=== PATIENT | female | born 1950 | race Caucasian/White ===

== ENCOUNTER → 2018-01-17 | Outpatient (CLI) | payer MEDICARE, OTHER ==
[~2018-01-17] MED LIST: ASPI-715 PO; ERGO400T9 PO; HYDR-3250 PO; LEVO75TA68 PO; LISI-355 PO; LORA-802 PO; MULT-885 PO
--- NOTE | 2018-01-17 14:58 | RADIOLOGY IMAGING REPORT ---
FACILITY: [facility] [place] PATIENT NAME: IRIS CULLEN : [id number] MR: [id number] V: [id number] EXAM DATE: [id number] ORDERING PHYSICIAN: AVI LOCKE TECHNOLOGIST: Shae Mclean PROCEDURE:BILATERAL DIGITAL SCREENING MAMMOGRAM WITH CAD ASSISTED INTERPRETATION & 3D TOMOSYNTHESIS COMPARISON:Prior mammogram 01/16/17. INDICATIONS:SCREENING FINDINGS: Breast tissue demonstrates scattered fibroglandular tissue elements. There is a biopsy clip in the Right breast unchanged. There is no suspicious mass, calcification, or architectural distortion. DIAGNOSTIC CATEGORY 2--BENIGN FINDING. RECOMMENDATIONS: ROUTINE MAMMOGRAM AND CLINICAL EVALUATION. IMPRESSION: BIRADS 2: Benign finding. No mammographic evidence for malignancy. Dictated by: Jorge Lin M.D. on 01/17/2018 at 12:12 Transcribed by: JENAE on 01/17/2018 at 13:36 Approved by: Jorge Lin M.D. on 01/17/2018 at 14:57 [facility]
== END ==
LOC: MAMO 02:16
PROVIDERS: ATTEND Nurse Practitioner Psychiatric/Mental Health
DX: Z12.31 Encounter for screening mammogram for malignant neoplasm of breast (principal)
CPT/HCPCS: 77063; 77067

== ENCOUNTER → 2018-11-27 | Outpatient (CLI) | payer MEDICARE, OTHER ==
--- NOTE | 2018-11-27 12:37 | EKG ---
FACILITY: [facility] PATIENT NAME: IRIS CULLEN : [id number] MR: [id number] V: [id number] EXAM DATE: ORDERING PHYSICIAN: JHONY HERNADEZ TECHNOLOGIST: ITZEL Test Reason : PREOP-KNEE Blood Pressure : / mmHG Vent. Rate : 077 BPM Atrial Rate : 077 BPM P-R Int : 176 ms QRS Dur : 068 ms QT Int : 388 ms P-R-T Axes : 068 027 059 degrees QTc Int : 439 ms Normal sinus rhythm Normal ECG When compared with ECG of 21-JUL-2016 09:36, Relatively unchanged Confirmed by ALBERTO KENNEDY ([id number]) on 11/27/2018 3:03:26 PM Referred By: Brooke HERNADEZ Confirmed By:ALBERTO KENNEDY
== END ==
LOC: RESP 11:40
PROVIDERS: ATTEND Orthopaedic Surgery
DX: Z01.810 Encounter for preprocedural cardiovascular examination (principal); Z01.812 Encounter for preprocedural laboratory examination; M17.12 Unilateral primary osteoarthritis, left knee; I10 Essential (primary) hypertension; E03.9 Hypothyroidism, unspecified
CPT/HCPCS: 81001; 93005

== ENCOUNTER 2018-12-31 01:36 | Observation (INO) | payer MEDICARE, OTHER ==
[2018-12-30 13:37] LABS: INR 1.04
--- NOTE | 2018-12-30 15:26 | NUR ---
This Physical Therapist or Russet Repairer was present for the entire physical therapy session directing the services, making the skilled judgement, and was not engaged in treating another patient or doing another task at the same time as the treatment session. Addendum: 12/30/18 at 1526 by IGOR PARKER PT Amended: Links added.
[~2018-12-31] VITALS: Ht 172.7 cm; Wt 83.5 kg
[2018-12-31] VITALS (12 sets, daily range): BP systolic 101–128; BP diastolic 48–82
[2018-12-31] MEDS ORDERED: fentaNYL CITR 100 MCG/2 ML AMP ONE (08:58)
[2018-12-31] MEDS ORDERED: ONDANSETRON 4 MG/2 ML VIAL ONE (08:59)
[2018-12-31] MEDS ORDERED: PROPOFOL EMUL(*) 10MG/ML 20 ML 20 ML ONE (08:59)
[2018-12-31] MEDS ORDERED: LIDOCAINE MPF 1% 5 ML VIAL ONE (08:59)
[2018-12-31] MEDS ORDERED: DEXAMETHASONE SOD PHOS 10MG/ML ONE (08:59)
[2018-12-31] MEDS ORDERED: SCOPOLAMINE 1.5 MG PATCH TD ONE (10:10)
--- NOTE | 2018-12-31 10:15 | NUR ---
PT. REPORTS THAT SHE HAS TAKEN CELEBREX IN THE PAST WITHOUT ANY ISSUES OR REACTIONS. WILL GIVE.
[2018-12-31] MEDS ORDERED: PROPOFOL(*)1000 MG/100 ML VIAL 100 ML ONE (10:16)
[2018-12-31] MEDS ORDERED: ceFAZolin(*) 2GM/D5W 50ML 50 ML IVPB ONE (10:45)
[2018-12-31] MEDS ORDERED: TRANEXAMIC AC 1000 MG/10ML SDV 1,000 MG in DEXTROSE 5% 50 ML BAG 50 ML IV ONE (10:45)
[2018-12-31] MEDS ORDERED: MIDAZOLAM 2 MG/2 ML VIAL IVP PRN (10:45)
[2018-12-31] MEDS ORDERED: NORMOSOL R SOLN(*) 1000 ML BAG 1,000 ML IV PRN (10:45)
[2018-12-31] MEDS ORDERED: CELECOXIB 200 MG CAP PO ONE (10:45)
[2018-12-31] MEDS ORDERED: FAMOTIDINE 20 MG TAB PO ONE (10:45)
[2018-12-31] MEDS ORDERED: LIDOCAINE/SOD BICARB 8.4% SYR ID ONE (10:45)
[2018-12-31] MEDS ORDERED: PREGABALIN 150 MG CAPSULE PO ONE (10:45)
[2018-12-31] MEDS ORDERED: ROPIVACAINE/EPI/CLONIDINE/KET 50 ML SYRINGE INJ ONE (10:45)
[2018-12-31] MEDS ORDERED: BACITRACIN 50000 UNIT/VIAL 100,000 UNIT in NS 0.9% 3000 ML IRRIGATION BAG 3,000 ML IR ONE (10:45)
[2018-12-31] MEDS ORDERED: ACETAMINOPHEN 500 MG TAB PO ONE (10:45)
--- NOTE | 2018-12-31 13:41 | OPERATIVE REPORT 1 ---
EVENT DATE: December 31, 2018 SURGEON: Monico Monique MD ANESTHESIOLOGIST: Enrico Higginbotham MD ANESTHESIA: General plus spinal. VIDEO CONFERENCE SPECIALIST: Charlie Shin PA-C PREOPERATIVE DIAGNOSIS Left knee osteoarthritis. POSTOPERATIVE DIAGNOSIS Left knee osteoarthritis. PROCEDURE PERFORMED Left total knee arthroplasty. FINDINGS The patient had a significant amount of arthritic changes throughout her entire knee but was amenable for a total knee replacement. ESTIMATED BLOOD LOSS 200 mL. DRAINS None. COMPLICATIONS None. TOURNIQUET TIME 13 minutes, only after instrumentation. IMPLANTS USED DePuy Attune size 5 narrow femur with a 5 x 5 rotating platform poly insert, 5 rotating platform tibia and 35 anatomic patella. SPECIMENS None. INDICATIONS AND HISTORY This patient is a 68-year-old female that presented to my clinic for evaluation of left knee pain and irritation and arthritic changes going on for some time. She continued to have pain and irritation despite conservative management. We had tried injections for a while but she continued to have a bunch of issues so she wanted to go ahead with a total knee replacement today, December 31, 2018. The risks and benefits were discussed with the patient and inform consent was obtained at the last clinic visit. We talked about there is no guarantee it will make her better and she might end up with some stiffness or irritation associated with it. DESCRIPTION OF PROCEDURE The patient was brought into the operating room. She and the procedure were both verified. She was placed supine on the operating table. After being given a spinal, she was then induced and intubated. The left lower extremity was prepped and draped in the usual fashion and a time-out was observed, verifying the correct patient and procedure. The standard incision was made over the anterior aspect of the knee. I was careful to cauterize all the bleeders along the skin and then get down to the extensor mechanism and also the medial parapatellar approach. Once I made the medial parapatellar approach, we then cauterized a lot of bleeders along that area and also we were able to ashish the patella without any major difficulty. Once I did this, I was able to remove the patellar fat pad without any major issues in the anterior aspects of the medial and lateral menisci and then peel back a little bit of the MCL attachment on the medial side in order to gain access to the knee itself. I then high-flexed the knee with the patella everted and then I was able to take off the bony osteophytes around the ACL and then take out the ACL and significant portion of the PCL initially. This was then followed by drilling the intramedullary guide for the Attune system out of the [employer] system and then putting it on 5 and 9 and then cutting the distal femur 9 mm. I then put on the sizing block and pinned it in place to size to just under a 5 so a 5 was chosen and the four-in-one cutting block was then utilized and all four cuts were made without any major difficulty. I then put in the notch cutting block and then cut the notch without any issues and everything looked good and then we removed the rest of the PCL in this area and also the posterior aspect of the menisci as we had good access associated with this. I then turned attention to the tibia once again and I was able to then sublux the tibia anteriorly using a single-prong and a double-prong retractor. I was also able to clear off the rest of the soft tissue and also some of the posterior medial meniscus, which had extruded out to the posterior side. Once I had it all cleared off, I then drilled the intramedullary guide for the Attune system on this one also and then used the standard slot and non-slot cutting guide in order to cut just the minimal amount off the medial side. Once I did this, I cut the proximal tibia without any difficulty. It had a nice straight cut associated with it so I removed all pins and guides. This was then followed by sizing of the proximal tibia and made sure it was a size 5. Once we sized it adequately, I then pinned that in place and then used the drill and the wedge punch in order to cut the tibia and prep it for the final components. I then was able to remove some osteophytes off the posterior aspect of the femur and then trialed the components. The 5 trial seemed good. She had full extension associated with it. There were no signs of major anterior drawer testing issues associated with it and it was stable to varus and valgus exam. This then had good flexion and extension and the knee cap tracked well. I then everted the knee cap and then cut the knee cap in accordance with the Attune system, cutting 7.5 mm off of this and then sizing it to a 35 mm patella, drilling the holes, and then trialing the trial patella. Once all the trial components were in place, I then inflated the tourniquet after exsanguinating the limb. We then took that off. Irrigated with copious amounts of saline, removed the components and removed the trial components and then cemented in the final components without any major difficulty and being sure to clear off all the cement off the posterior and anterior aspects. I then let the cement harden as we let Aricept soak within the components on the wound itself. This was then followed by irrigation again with copious amounts of saline using the pulsatile lavage and then I anesthetized the tissue with the pain cocktail as I usually do. I then closed the parapatellar approach with a #2 Quill. This was then followed by 2-0 Vicryl in the lower fat layer. This was then followed by 2-0 Quill in the subcutaneous tissue and subcuticular 4-0 running Monocryl. We then put the Bio-occlusive dressing over the top and the patient was awakened and extubated and transferred to PACU in stable condition. Once again, we let the tourniquet down just after the cement was hardened. DOMINGO
[2018-12-31] MEDS ORDERED: BISACODYL 10 MG SUPP PR PRN (14:00)
[2018-12-31] MEDS ORDERED: MAGNESIUM CITRATE 300 ML BTL PO PRN (14:00)
[2018-12-31] MEDS ORDERED: ZOLPIDEM TARTRATE 5 MG TAB PO PRN (14:00)
[2018-12-31] MEDS ORDERED: ONDANSETRON 4 MG/2 ML VIAL IVP PRN (14:00)
[2018-12-31] MEDS ORDERED: diphenhydrAMINE 50 MG/ML VIAL IVP PRN (14:00)
[2018-12-31] MEDS ORDERED: MAGNESIUM HYDROXIDE* 30ML UDCP PO PRN (14:00)
[2018-12-31] MEDS ORDERED: LR 1000 ML BAG 1000 ML IV PRN (14:00)
[2018-12-31] MEDS ORDERED: FLUSH 10 ML SYR IVP PRN (14:00)
[2018-12-31] MEDS ORDERED: diphenhydrAMINE 25 MG CAP PO PRN (14:00)
[2018-12-31] MEDS ORDERED: PROMETHAZINE 25 MG/ML 1 ML AMP IVP PRN (14:00)
--- NOTE | 2018-12-31 14:15 | RADIOLOGY IMAGING REPORT ---
FACILITY: [facility] PATIENT NAME: Melody Disla : 1950 MR: [id number] V: [id number] EXAM DATE: ORDERING PHYSICIAN: JHONY HERNADEZ TECHNOLOGIST: Location: [facility] [place] Patient: Melody Disla : 1950 Visit/Account:[id number] Date of Sevice: 12/31/2018 Exam type: KNEE LIMITED LEFT History: Post op left knee placement Comparison: None. Findings: Two views left knee demonstrate a left knee arthroplasty in good anatomic alignment. Soft tissue gas projects over the anterior aspect of this postoperative knee IMPRESSION: 1. As above Report Dictated By: Jennifer Alejandre MD at 12/31/2018 2:07 PM Report E-Signed By: Jennifer Alejandre MD at 12/31/2018 2:08 PM WSN:[id number]
[2018-12-31] MEDS: oxyCODON/ACET (*)5/325MG (CII) 1 TAB TAB PO PRN ×2 (15:10→21:48)
[2018-12-31] MEDS: HYDROmorphone HCL 2 MG/ML SDV IVP PRN ×2 (15:30→20:08)
--- NOTE | 2018-12-31 16:02 | NUR ---
Physical Therapy Impression PT eval and treat completed. Spinal is still in effect and limits pt's coordination for safe ambulation. Pt tolerated side step at EOB with Min/Mod assist required for safety. Pt encouraged to use bedside commode for initial attempt when spinal is more resolved and then ambulate to/from BR with nursing when coordination improves later this evening. Physical Therapy Goals 1. Pt to be mod indep for supine to/from sit transfers 2. Pt to be mod indep for sit to/from stand transfers 3. Pt to amb with least restrictive device x 100' with mod indep 4. Pt to buster up/down 2 steps with rail and SBA/Mod indep Patient's Goals
--- NOTE | 2018-12-31 16:50 | Hospitalist Progress Note ---
Subjective Progress Notes Subjective No cp/sob. 200cc of EBL. 1800cc of crystalloid, dexamethasone, TXA and ephedrine given intra-op. Physical Exam Vital Signs Date Time Temp Pulse Resp B/P (MAP) Pulse Ox O2 Delivery O2 Flow Rate FiO2 12/31/18 15:30 92 Nasal Cannula 1.0 12/31/18 15:30 67 128/70 (89) 12/31/18 14:50 97.3 16 General Appearance: Alert, Awake, No Acute Distress Cardiovascular: Regular Rate and Rhythm (2/6 systolic murmur), No Edema Respiratory: Clear to Auscultation Assessment and Plan Problems: (1) Status post knee replacement Status: Acute Assessment & Plan: No CV/pulmonary issues. She has no h/o DVT/PE. She will be on ASA 325mg a day for 30 days for VTE prophylaxis. (2) HTN (hypertension) Status: Chronic Assessment & Plan: Continue chronic lisinopril/HCTZ with parameters. (3) Hypothyroid Status: Chronic Assessment & Plan: Continue chronic levothyroxine. Exam Sepsis Risk: No Definite Risk Problem Qualifiers (1) Status post knee replacement: Laterality: left Qualified Codes: Z96.652 - Presence of left artificial knee joint ALBERTO KENNEDY MD Dec 31, 2018 16:49
[2018-12-31] MEDS: ASPIRIN 325 MG TAB PO SCH (20:17)
[2018-12-31] MEDS: ceFAZolin(*) 1 GM VIAL 1 GM in NS(*) 0.9% 100 ML MINI-BAG 100 ML IVPB SCH (20:17)
[2019-01-01] MEDS: oxyCODON/ACET (*)5/325MG (CII) 1 TAB TAB PO PRN ×6 (01:56→21:43)
[2019-01-01] MEDS: HYDROmorphone HCL 2 MG/ML SDV IVP PRN (03:02)
[2019-01-01 03:09] VITALS: BP 128/59
[2019-01-01] MEDS: ceFAZolin(*) 1 GM VIAL 1 GM in NS(*) 0.9% 100 ML MINI-BAG 100 ML IVPB SCH ×2 (03:17→11:15)
[2019-01-01] MEDS: LEVOTHYROXINE SOD 0.075 MG TAB PO SCH (06:09)
[2019-01-01 07:52] VITALS: BP 101/53
[2019-01-01] MEDS ORDERED: HYDROCHLOROTHIAZIDE 25 MG TAB PO SCH (09:00)
[2019-01-01] MEDS ORDERED: LISINOPRIL 20 MG TAB PO SCH (09:00)
--- NOTE | 2019-01-01 10:37 | Hospitalist Progress Note ---
Subjective Progress Notes Subjective She was admitted s/p knee replacement. She had no acute events overnight. Patient Complains of: Cardiovascular: No: Chest Pain Respiratory: No: Shortness of Breath Physical Exam Vital Signs Date Time Temp Pulse Resp B/P (MAP) Pulse Ox O2 Delivery O2 Flow Rate FiO2 01/01/19 09:15 79 Room Air 01/01/19 07:57 96.8 01/01/19 07:52 60 20 101/53 (69) 12/31/18 23:47 1.0 Intake and Output 01/01/19 01:01 Intake Total 5200 ml Output Total 100 ml Balance 5100 ml Intake Oral 1250 ml IV Total 2150 ml Other 1800 ml Output Estimated Blood Loss 100 ml # Voids 1 General Appearance: Alert, Awake, No Acute Distress, Afebrile Neuro: No Gross deficits Cardiovascular: Regular Rate and Rhythm Respiratory: No Respiratory Distress, Clear to Auscultation GI: Soft and Non-Tender Psych: Alert & Oriented X3, Appropriate Mood & Affect Result Diagram: 01/01/19 0557 Assessment and Plan Problems: (1) Status post knee replacement Status: Acute Assessment & Plan: No CV/pulmonary issues. She has no h/o DVT/PE. She will be on ASA 325mg a day for 30 days for VTE prophylaxis. (2) HTN (hypertension) Status: Chronic Assessment & Plan: Continue chronic lisinopril/HCTZ with parameters. (3) Hypothyroid Status: Chronic Assessment & Plan: Continue chronic levothyroxine. Exam Sepsis Risk: No Definite Risk Problem Qualifiers (1) Status post knee replacement: Laterality: left Qualified Codes: Z96.652 - Presence of left artificial knee joint (2) HTN (hypertension): Hypertension type: essential hypertension Qualified Codes: I10 - Essential (primary) hypertension ALE DAMON IT INTEGRATION ARCHITECT Jan 01, 2019 10:37
[2019-01-01] MEDS ORDERED: KETOROLAC 30 MG/ML VIAL ONE (11:03)
[2019-01-01] MEDS: KETOROLAC 30 MG/ML VIAL IVP PRN ×2 (11:13→19:37)
[2019-01-01 11:18] VITALS: BP 134/59
[2019-01-01] MEDS ORDERED: KETOROLAC 30 MG/ML VIAL IVP SCH (12:00)
[2019-01-01 12:02] VITALS: Ht 172.7 cm; Wt 83.5 kg
--- NOTE | 2019-01-01 14:02 | NUR ---
Physical Therapy Impression Pt nearing all PT goals and safe for discharge when medically appropriate. Pt demonstrated improved tolerance to mobility and able to ascend/descend 1 stair without difficulty. Pt performed supine<>sit transfers with Mayra, HOB raised. Pt performed sit<>stand xfers with Mayra use of RW. Pt ambulated 170 ft with SBA and use of RW. Pt complained of slight light headedness, but was asymptomatic and able to hold conversation while ambulating. Pt able to ascend/descend 1 stair with CGA and use of R railing/hand held assist. Pt able to complete stair without significant difficulty. Verbal cues provided for foot sequencing. Pt left supine in bed with all needs met and call light in reach. Pt would benefit from further skilled PT care to improve strength/ROM to allow for more functional ambulation. Rec OP PT following discharge. Physical Therapy Goals 1. Pt to be mod indep for supine to/from sit transfers 2. Pt to be mod indep for sit to/from stand transfers 3. Pt to amb with least restrictive device x 100' with mod indep 4. Pt to buster up/down 2 steps with rail and SBA/Mod indep Patient's Goals
[2019-01-01 14:22] VITALS: BP 112/57
[2019-01-01 19:19] VITALS: BP 123/59
[2019-01-01] MEDS: ASPIRIN 325 MG TAB PO SCH (19:37)
[2019-01-02 01:59] VITALS: BP 114/58
[2019-01-02] MEDS: oxyCODON/ACET (*)5/325MG (CII) 1 TAB TAB PO PRN ×3 (01:59→10:31)
[2019-01-02] MEDS: LEVOTHYROXINE SOD 0.075 MG TAB PO SCH (05:57)
[2019-01-02 07:12] VITALS: BP 105/63
[2019-01-02] MEDS ORDERED: PER PO (07:16)
[2019-01-02] MEDS ORDERED: ASPI-757 PO (08:24)
--- NOTE | 2019-01-02 09:00 | NUR ---
Physical Therapy Impression Pt near PT goals and ready for discharge. Pt expressed no mobility concerns regarding discharge. Reviewed CPM use with Pt. After demonstration Pt able to change settings without verbal cues. Pt left with CPM on from 0-43 degrees. Recommend OP PT following discharge. Physical Therapy Goals 1. Pt to be mod indep for supine to/from sit transfers 2. Pt to be mod indep for sit to/from stand transfers 3. Pt to amb with least restrictive device x 100' with mod indep 4. Pt to buster up/down 2 steps with rail and SBA/Mod indep Patient's Goals
--- NOTE | 2019-01-02 09:26 | NUR ---
This Physical Therapist or Agricultural Equipment Operator was present for the entire physical therapy session directing the services, making the skilled judgement, and was not engaged in treating another patient or doing another task at the same time as the treatment session. Addendum: 01/02/19 at 0926 by IGOR PARKER PT Amended: Links added.
--- NOTE | 2019-01-02 09:28 | NUR ---
This Physical Therapist or Passenger Service Representative was present for the entire physical therapy session directing the services, making the skilled judgement, and was not engaged in treating another patient or doing another task at the same time as the treatment session. Addendum: 01/02/19 at 0928 by IGOR PARKER PT Amended: Links added.
--- NOTE | 2019-01-02 11:15 | NUR ---
This Physical Therapist or Structures Mechanic was present for the entire physical therapy session directing the services, making the skilled judgement, and was not engaged in treating another patient or doing another task at the same time as the treatment session. Addendum: 01/02/19 at 1115 by TARA MARMOLEJO PT Amended: Links added.
[2019-01-02 11:43] VITALS: BP 129/58
--- NOTE | 2019-01-02 12:07 | Hospitalist Progress Note ---
Subjective Progress Notes Subjective She was admitted s/p knee replacement. She had no acute events overnight. Patient Complains of: Cardiovascular: No: Chest Pain Respiratory: No: Shortness of Breath Physical Exam Vital Signs Date Time Temp Pulse Resp B/P (MAP) Pulse Ox O2 Delivery O2 Flow Rate FiO2 01/02/19 11:43 97.5 60 16 129/58 (81) 92 Room Air 01/02/19 07:12 2.0 Intake and Output 01/02/19 01:01 Intake Total 890 ml Balance 890 ml Intake Oral 790 ml IV Total 100 ml # Voids 1 General Appearance: Alert, Awake, No Acute Distress, Afebrile Neuro: No Gross deficits Cardiovascular: Regular Rate and Rhythm Respiratory: No Respiratory Distress, Clear to Auscultation GI: Soft and Non-Tender Psych: Alert & Oriented X3, Appropriate Mood & Affect Result Diagram: 01/02/19 0549 Assessment and Plan Problems: (1) Status post knee replacement Status: Acute Assessment & Plan: No CV/pulmonary issues. She has no h/o DVT/PE. She will be on ASA 325mg a day for 30 days for VTE prophylaxis. She will be discharged with oxygen to wear at night. She will follow up with PCP regarding oxygen use. (2) HTN (hypertension) Status: Chronic Assessment & Plan: Continue chronic lisinopril/HCTZ with parameters. She hold for 3 days, then resume. If she feels dizzy, she will stop medication and notify PCP. (3) Hypothyroid Status: Chronic Assessment & Plan: Continue chronic levothyroxine. Copies to: AVI LOCKE ; Exam Sepsis Risk: No Definite Risk Problem Qualifiers (1) Status post knee replacement: Laterality: left Qualified Codes: Z96.652 - Presence of left artificial knee joint (2) HTN (hypertension): Hypertension type: essential hypertension Qualified Codes: I10 - Essential (primary) hypertension ALE DAMON Jan 02, 2019 12:07
== END 2019-01-02 07:16 | disposition home or self-care (01) ==
LOC: OR 01:36 → MED 14:45
PROVIDERS: ADMIT Orthopaedic Surgery; ATTEND Orthopaedic Surgery
DX: M17.12 Unilateral primary osteoarthritis, left knee (principal); I10 Essential (primary) hypertension; E03.9 Hypothyroidism, unspecified; Z79.82 Long term (current) use of aspirin
CPT/HCPCS: 27447; 36415; 73560; 85014; 85018; 85610; 86850; 86900; 86901; 97116; 97161; 97530; A9270; C1713; C1776; G0378; J0690; J1100; J1170; J1885; J2001; J2250; J2405; J2704; J3010; J7030; J7060

== ENCOUNTER 2019-01-08 04:46 | Inpatient (IN) | payer MEDICARE, OTHER ==
[2019-01-01 12:02] VITALS: Ht 172.7 cm; Wt 81.6 kg
[~2019-01-08] VITALS: Ht 172.7 cm; Wt 81.6 kg
[~2019-01-08 04:46] MED LIST changes: +ASPI-757 PO; +PER PO
[2019-01-08] MEDS ORDERED: NS(*) 0.9% 1000 ML BAG 1,000 ML IV ONE (04:50)
--- NOTE | 2019-01-08 04:50 | ER Report ---
History and Physical Time Seen By MD: 04:47 HPI/ROS CHIEF COMPLAINT: Abdominal discomfort, bright red blood per rectum HISTORY OF PRESENT ILLNESS: Patient is a 68-year-old female who comes here for complaints of diffuse abdominal discomfort, acute onset of bright red blood per rectum with associated nausea without vomiting. Patient reports she does have a history of prior exploratory laparotomies in the past however denies prior history of gastrointestinal bleeding aside from an isolated incident with food poisoning in the remote past. Patient is tachycardic, mildly hypotensive at time of evaluation, afebrile. She does report having chills however. Denies hematemesis REVIEW OF SYSTEMS: Constitutional: No fever, + chills. Eyes: No discharge. ENT: No sore throat. Cardiovascular: No chest pain, no palpitations. Respiratory: No cough, no shortness of breath. Gastrointestinal: + Diffuse abdominal discomfort no vomiting. + Nausea Genitourinary: No hematuria. Musculoskeletal: No back pain. Skin: No rashes. Neurological: No headache. Allergies: Coded Allergies: Sulfa (Sulfonamide Antibiotics) (Verified Allergy, Mild, 12/31/18) iodine (Verified Allergy, Unknown, 08/24/14) povidone-iodine (Verified Allergy, Unknown, 12/24/18) shellfish derived (Verified Allergy, Unknown, 08/24/14) soap (Verified Allergy, Unknown, 12/24/18) Uncoded Allergies: SULFA (Allergy, Unknown, 08/24/14) Home Meds Active Scripts Aspirin (ASPIRIN) 325 Mg Tablet, 325 MG PO QDAY, #30 TAB Prov:MARISOLALE [facility] 01/02/19 Reported Medications [place]-3 Fatty Acids/Fish Oil (FISH OIL 1,000 MG CAPSULE) 1 Each Capsule, 1 CAP PO QDAY, CAPSULE 01/08/19 Estrogens, Conjugated (Premarin) 0.625 Mg/Gram Cream.appl, 0.5 G VA 2XW 01/08/19 Etodolac (ETODOLAC) 500 Mg Tab.er.24h, 500 MG PO QDAY 01/08/19 Oxycodone/Acetaminophen (OXYCODONE/ACETAMINOPHEN 5MG/325 MG) 5 Mg/325 Mg Tab, 1 TAB PO Q4H PRN for PAIN, #40 01/02/19 Multivitamin (DAILY VITAMIN) 1 Each Tablet, 1 EACH PO DAILY 08/24/14 Loratadine (CLARITIN) 10 Mg Tablet, 10 MG PO QDAY 08/24/14 Aspirin (Aspirin) 81 Mg Tablet.dr, 81 MG PO DAILY Hold while taking Aspirin 325mg, then resume. 11/08/12 Lisinopril/Hydrochlorothiazide (Lisinopril-Hctz 20/25 Tab) 1 Each Tablet, 1 EACH PO DAILY Hold for 3 days or until systolic blood pressure greater than 130. 11/08/12 Levothyroxine Sodium (Levothyroxine Sodium) 75 Mcg Tablet, 75 MCG PO DAILY 11/08/12 Discontinued Reported Medications Ergocalciferol (Vitamin D2) (VITAMIN D) 400 Unit Tablet, 200 UNIT PO QDAY 10/01/14 Hx Smoking: No Hx Alcohol Use: Yes (OCC) Constitutional Vital Sign - Last 24 Hours 01/08/19 01/08/19 01/08/19 01/08/19 04:46 04:49 04:52 05:00 Temp 98.3 Pulse ??? 107 Resp 17 B/P (MAP) 97/69 (78) 96/69 106/71 (83) Pulse Ox 97 O2 Delivery Room Air 01/08/19 01/08/19 01/08/19 01/08/19 05:16 05:30 05:46 06:00 Pulse 88 80 B/P (MAP) 116/66 (83) 95/70 (78) Pulse Ox 97 95 01/08/19 01/08/19 01/08/19 01/08/19 06:30 06:45 07:00 07:15 Pulse 85 92 83 87 B/P (MAP) 121/60 (80) 129/64 (85) Pulse Ox 98 98 96 98 01/08/19 01/08/19 01/08/19 07:30 07:45 08:00 Pulse 92 79 81 B/P (MAP) 125/60 (81) Pulse Ox 97 98 98 Intake and Output 01/07/19 01/07/19 01/08/19 15:02 23:02 07:02 Intake Total 1000 ml Balance 1000 ml Physical Exam General Appearance: The patient is alert, has no immediate need for airway protection and no signs of toxicity. Uncomfortable appearing Eyes: Pupils equal and round no pallor or injection. ENT, Mouth: Mucous membranes are moist. Respiratory: There are no retractions, lungs are clear to auscultation. Cardiovascular: Sinus tachycardia Gastrointestinal: Abdomen is soft and + diffusely tender, no masses, bowel sounds normal. No rebound or guarding Neurological: No focal neurological deficits on examination Skin: Warm and dry, no rashes. Musculoskeletal: Neck is supple non tender. Extremities are nontender, nonswollen and have full range of motion. DIFFERENTIAL DIAGNOSIS: After history and physical exam differential diagnosis was considered for abdominal pain including but not limited to appendicitis, ch olecystitis, gastritis and urinary tract infection, diverticulitis, malignancy Medical Decision Making Data Points Result Diagram: 01/08/19 0527 01/08/19 0848 Laboratory Hematology Test 01/08/19 05:27 Red Blood Count 4.48 M/uL (4.17-5.56) Mean Corpuscular Volume 95.8 fL (80.0-96.0) Mean Corpuscular Hemoglobin 32.4 pg (26.0-33.0) Mean Corpuscular Hemoglobin Concent 33.8 g/dL (32.0-36.0) Red Cell Distribution Width 13.5 % (11.5-14.5) Mean Platelet Volume 8.0 fL (7.2-11.1) Neutrophils (%) (Auto) 93.4 % (39.4-72.5) Lymphocytes (%) (Auto) 2.0 % (17.6-49.6) Monocytes (%) (Auto) 3.9 % (4.1-12.4) Eosinophils (%) (Auto) 0.1 % (0.4-6.7) Basophils (%) (Auto) 0.6 % (0.3-1.4) Nucleated RBC Relative Count (auto) 0.0 /100WBC Neutrophils # (Auto) 25.0 K/uL (2.0-7.4) Lymphocytes # (Auto) 0.5 K/uL (1.3-3.6) Monocytes # (Auto) 1.0 K/uL (0.3-1.0) Eosinophils # (Auto) 0.0 K/uL (0.0-0.5) Basophils # (Auto) 0.2 K/uL (0.0-0.1) Nucleated RBC Absolute Count (auto) 0.01 K/uL Prothrombin Time 13.4 seconds (12.0-14.4) Prothromb Time International Ratio 1.02 Activated Partial Thromboplast Time 30 seconds (23-35) Total Bilirubin 0.9 mg/dl (0.2-1.3) Aspartate Amino Transf (AST/SGOT) 30 U/L (0-35) Alanine Aminotransferase (ALT/SGPT) 36 U/L (0-56) Alkaline Phosphatase 80 U/L (0-126) Total Protein 6.9 g/dl (6.3-8.2) Albumin 3.8 g/dl (3.5-5.0) Lipase 435 U/L (23-300) Chemistry Test 01/08/19 05:27 White Blood Count 26.7 k/uL (4.5-11.0) Red Blood Count 4.48 M/uL (4.17-5.56) Hemoglobin 14.5 g/dL (12.0-16.0) Hematocrit 42.9 % (34.0-47.0) Mean Corpuscular Volume 95.8 fL (80.0-96.0) Mean Corpuscular Hemoglobin 32.4 pg (26.0-33.0) Mean Corpuscular Hemoglobin Concent 33.8 g/dL (32.0-36.0) Red Cell Distribution Width 13.5 % (11.5-14.5) Platelet Count 369 K/uL (150-450) Mean Platelet Volume 8.0 fL (7.2-11.1) Neutrophils (%) (Auto) 93.4 % (39.4-72.5) Lymphocytes (%) (Auto) 2.0 % (17.6-49.6) Monocytes (%) (Auto) 3.9 % (4.1-12.4) Eosinophils (%) (Auto) 0.1 % (0.4-6.7) Basophils (%) (Auto) 0.6 % (0.3-1.4) Nucleated RBC Relative Count (auto) 0.0 /100WBC Neutrophils # (Auto) 25.0 K/uL (2.0-7.4) Lymphocytes # (Auto) 0.5 K/uL (1.3-3.6) Monocytes # (Auto) 1.0 K/uL (0.3-1.0) Eosinophils # (Auto) 0.0 K/uL (0.0-0.5) Basophils # (Auto) 0.2 K/uL (0.0-0.1) Nucleated RBC Absolute Count (auto) 0.01 K/uL Prothrombin Time 13.4 seconds (12.0-14.4) Prothromb Time International Ratio 1.02 Activated Partial Thromboplast Time 30 seconds (23-35) Total Bilirubin 0.9 mg/dl (0.2-1.3) Aspartate Amino Transf (AST/SGOT) 30 U/L (0-35) Alanine Aminotransferase (ALT/SGPT) 36 U/L (0-56) Alkaline Phosphatase 80 U/L (0-126) Total Protein 6.9 g/dl (6.3-8.2) Albumin 3.8 g/dl (3.5-5.0) Lipase 435 U/L (23-300) Coagulation Test 01/08/19 05:27 Prothrombin Time 13.4 seconds Prothromb Time International Ratio 1.02 Activated Partial Thromboplast Time 30 seconds Microbiology Microbiology Date/Time Source Procedure Growth Status 01/08/19 07:14 Blood Peripheral Draw Blood Culture - Preliminary NO GROWTH SO FAR, SET LATE. REINCUBATED Resulted 01/08/19 06:50 Blood Line Draw Blood Culture - Preliminary NO GROWTH SO FAR, SET LATE. REINCUBATED Resulted EKG/Imaging Imaging PATIENT NAME: Melody Disla : 1950 MR: [id number] V: [id number] EXAM DATE: ORDERING PHYSICIAN: AUGUSTIN FARIAS TECHNOLOGIST: Location: [facility] [place] Patient: Melody Disla : 1950 Visit/Account:[id number] Date of Sevice: 01/08/2019 CT ABDOMEN PELVIS W/O CON HISTORY:abd pain, GI bleed TECHNIQUE: CT abdomen and pelvis without intravenous contrast. Contiguous axial images of the abdomen and pelvis was performed from the lung bases to the symphysis pubis. One of the following dose optimization techniques was utilized in the performance of this exam: Automated exposure control; adjustment of the mA and/or kV according to the patient's size; or use of an iterative reconstr uction technique. Specific details can be referenced in the facility's radiology CT exam operational policy. CONTRAST: None. COMPARISON: None. FINDINGS: Visualized lung bases: Negative. Hepatobiliary: Negative. Spleen: Negative. Adrenals: Negative. Kidneys/: Bilateral renal cysts are identified. Parapelvic cysts are noted left kidney. Right renal cortical cyst medial midpole measures 2.7 cm. Pancreas: Negative. GI: There is circumferential thickening and inflammation of the descending colon, sigmoid colon and rectum suggestive of colitis. No bowel obstruction or free air. Small amount of fluid left paracolic gutter is noted. The appendix is normal. Vessels/spaces/nodes: Mild atherosclerotic calcification is noted. Bones/soft tissues: Significant degenerative changes are noted. Calcified posterior disc protrusion L3-4 is noted with mild spinal canal narrowing. IMPRESSION: 1. Circumferential thickening and inflammation of the colon from the splenic flexure to the rectum suggestive of colitis. No evidence for bowel obstruction. ED Course/Re-evaluation ED Course Patient is a 68-year-old female here with complaints of diffuse abdominal discomfort, nausea without vomiting, new onset of bright red blood per rectum. Patient does not take anticoagulants aside from aspirin. Patient was tachycardic, mildly hypertensive at time of evaluation. Last colonoscopy was proximally 4 years ago. Patient was given IV fluid boluses 2, Zofran with significant relief of symptoms. Patient was found to have a lactate of 4.3, leukocytosis of 26,000, mild AK I with creatinine 1.6. Patient's reports that the patient has been taking NSAIDs since her total knee replacement which was recent. CT imaging without contrast was completed because patient has a significant allergy which identified a sigmoid colitis. Patient was administered Zosyn for antimicrobial coverage. I discussed the patient with who admitted the patient for further treatment and inpatient care. Patient was stable at time of admission. Decision to Disposition Date: Jan 08, 2019 Decision to Disposition Time: 07:00 Depart Departure Latest Vital Signs Vital Signs Date Time Temp Pulse Resp B/P (MAP) Pulse Ox O2 Delivery O2 Flow Rate FiO2 01/08/19 08:00 81 125/60 (81) 98 01/08/19 04:52 98.3 17 Room Air Impression: Primary Impression: Colitis, infectious Additional Impression: ARF (acute renal failure) Condition: Improved Disposition: Admitted from ER Referrals: AVI LOCKE (PCP) Problem Qualifiers AUGUSTIN FARIAS DO Jan 08, 2019 04:50
[2019-01-08] MEDS ORDERED: fentaNYL CITR 100 MCG/2 ML AMP IVP ONE (05:00)
[2019-01-08] MEDS ORDERED: ONDANSETRON 4 MG/2 ML VIAL IVP ONE (05:00)
[2019-01-08] MEDS ORDERED: IOPAMIDOL 76% 100 ML INFUS BTL 0 ML ONE (05:03)
[2019-01-08 05:46] LABS: PLATELET COUNT, AUTOMATED 369 K/uL (150-450)
[2019-01-08 06:16] LABS: INR 1.02
--- NOTE | 2019-01-08 06:35 | RADIOLOGY IMAGING REPORT ---
FACILITY: [facility] PATIENT NAME: Melody Disla : 1950 MR: [id number] V: [id number] EXAM DATE: ORDERING PHYSICIAN: AUGUSTIN FARIAS TECHNOLOGIST: Location: [facility] Patient: Melody Disla : 1950 Visit/Account:[id number] Date of Sevice: 01/08/2019 CT ABDOMEN PELVIS W/O CON HISTORY:abd pain, GI bleed TECHNIQUE: CT abdomen and pelvis without intravenous contrast. Contiguous axial images of the abdom en and pelvis was performed from the lung bases to the symphysis pubis. One of the following dose optimization techniques was utilized in the performance of this exam: Autom ated exposure control; adjustment of the mA and/or kV according to the patient's size; or use of an i terative reconstruction technique. Specific details can be referenced in the facility's radiology C T exam operational policy. CONTRAST: None. COMPARISON: None. FINDINGS: Visualized lung bases: Negative. Hepatobiliary: Negative. Spleen: Negative. Adrenals: Negative. Kidneys/: Bilateral renal cysts are identified. Parapelvic cysts are noted left kidney. Right simon l cortical cyst medial midpole measures 2.7 cm. Pancreas: Negative. GI: There is circumferential thickening and inflammation of the descending colon, sigmoid colon and rectum suggestive of colitis. No bowel obstruction or free air. Small amount of fluid left paracolic gutter is noted. The appendix is normal. Vessels/spaces/nodes: Mild atherosclerotic calcification is noted. Bones/soft tissues: Significant degenerative changes are noted. Calcified posterior disc protrusion L3-4 is noted with mild spinal canal narrowing. IMPRESSION: 1. Circumferential thickening and inflammation of the colon from the splenic flexure to the rectum s uggestive of colitis. No evidence for bowel obstruction. Report Dictated By: Gunner Briones MD at 01/08/2019 6:24 AM Report E-Signed By: Gunner Briones MD at 01/08/2019 6:29 AM WSN:[id number]
[2019-01-08] MEDS ORDERED: diphenhydrAMINE 50 MG/ML VIAL IM ONE (06:40)
[2019-01-08] MEDS ORDERED: OLANZapine 10 MG VIAL IM ONLY ONE (06:40)
[2019-01-08] MEDS ORDERED: WATER STERILE 10 ML VIAL IM ONLY ONE (06:40)
[2019-01-08] MEDS ORDERED: LORazepam 2 MG/ML VIAL IM ONE (06:40)
[2019-01-08] MEDS: NS(*) 0.9% 1000 ML BAG 1,000 ML IV ONE ×2 (06:45→09:00)
[2019-01-08] MEDS ORDERED: PANTOPRAZOLE SOD 40 MG IV VIAL IVP ONE (06:50)
[2019-01-08] MEDS ORDERED: PIPERACILLIN/TAZO*3.375GM VIAL 3.375 GM in NS(*) 0.9% 100 ML MINI-BAG 100 ML IVPB ONE (06:50)
[2019-01-08] MEDS ORDERED: ONDANSETRON 4 MG/2 ML VIAL IVP PRN (07:50)
[2019-01-08] MEDS ORDERED: INFLUENZA VIRUS VAC 0.5ML SYR IM ONLY ONE (07:50)
[2019-01-08 09:05] VITALS: BP 130/63
[2019-01-08] MEDS: LR(*) 1000 ML BAG 1,000 ML IV PRN ×2 (09:19→20:54)
[2019-01-08] MEDS ORDERED: oxyCODON/ACET (*)5/325MG (CII) 1 TAB TAB PO PRN (09:30)
--- NOTE | 2019-01-08 09:33 | History & Physical ---
History of Present Illness History of Present Illness 68yo female with a h/o HTN and recent TKA who came to the ER for weakness, chills and bloody stools. She had a LTKA on 12/31. She was discharged home on 01/02. She did well, initially. She started feeling constipated on 01/03. She didn't have a BM until the evening of 01/07. She had about an hour of severe epig astric pain and a vomiting episode, she then had very large BM's. After a couple normal BM's, she started to have bloody stools at about 10pm. She developed shaking chills and persistent nausea. At about 4am this morning (01/08), she was so weak that she couldn't get off the toilet, so her brought her to the ER. In the ER, she bolused 1 liter of IVF, that decreased her elevated HR and in creased her BP. Zofran was given that helped her nausea significantly. Zosyn was also given. History Problems: (1) S/P removal of ovarian cyst (2) Hypothyroid Status: Chronic (3) HTN (hypertension) Status: Chronic (4) Status post knee replacement Status: Acute Home Meds Active Scripts Aspirin (ASPIRIN) 325 Mg Tablet, 325 MG PO QDAY, #30 TAB Prov:ALE DAMON Brooke [facility] 01/02/19 Reported Medications Oxycodone/Acetaminophen (OXYCODONE/ACETAMINOPHEN 5MG/325 MG) 5 Mg/325 Mg Tab, 1 TAB PO Q4H PRN for PAIN, #40 01/02/19 Ergocalciferol (Vitamin D2) (VITAMIN D) 400 Unit Tablet, 200 UNIT PO QDAY 10/01/14 Multivitamin (DAILY VITAMIN) 1 Each Tablet, 1 EACH PO DAILY 08/24/14 Loratadine (CLARITIN) 10 Mg Tablet, 10 MG PO QDAY 08/24/14 Aspirin (Aspirin) 81 Mg Tablet.dr, 81 MG PO DAILY Hold while taking Aspirin 325mg, then resume. 11/08/12 Lisinopril/Hydrochlorothiazide (Lisinopril-Hctz 20/25 Tab) 1 Each Tablet, 1 EACH PO DAILY Hold for 3 days or until systolic blood pressure greater than 130. 11/08/12 Levothyroxine Sodium (Levothyroxine Sodium) 75 Mcg Tablet, 75 MCG PO DAILY 11/08/12 Allergies: Coded Allergies: Sulfa (Sulfonamide Antibiotics) (Verified Allergy, Mild, 12/31/18) iodine (Verified Allergy, Unknown, 08/24/14) povidone-iodine (Verified Allergy, Unknown, 12/24/18) shellfish derived (Verified Allergy, Unknown, 08/24/14) soap (Verified Allergy, Unknown, 12/24/18) Uncoded Allergies: SULFA (Allergy, Unknown, 08/24/14) Patient History: FH: CHF (congestive heart failure) MOTHER, , Age:84 FH: [place] (myocardial infarction) FATHER, , Age:49 FH: asthma sibling FH: breast cancer MOTHER, , Age:84 Other Social/Family Hx No tobacco use and rare alcohol use. Hx Smoking: No Caffeine Intake: Coffee, Tea Caffeine/Cups Per Day: 2-3 cups per day Hx Alcohol Use: Yes (OCC) Social Drug Use: Never Review of Systems All Systems Reviewed/Normal: Yes, Except as Noted Exam Vital Signs Vital Signs Date Time Temp Pulse Resp B/P (MAP) Pulse Ox O2 Delivery O2 Flow Rate FiO2 01/08/19 09:05 97.7 79 20 130/63 (85) 96 Room Air General Appearance: Alert, Awake, No Acute Distress (Pale.) Neuro: No Gross deficits Eyes: PERRLA ENT: Moist Mucous Membranes Cardiovascular: Regular Rate and Rhythm Respiratory: Clear to Auscultation GI: Abd Soft and Non-Tender (Mild discomfort on the left with deep palpation. Hyperactive BS.) Extremities: No Edema Integumentary: No Jaundice, No Cyanosis Medical Decision Making Data Points Result Diagram: 01/08/1952601/08/19526 Item Value Date Time Neutrophils (%) (Auto) 93.4 % H 01/08/19526 Lymphocytes (%) (Auto) 2.0 % L 01/08/19526 Monocytes (%) (Auto) 3.9 % L 01/08/19526 Eosinophils (%) (Auto) 0.1 % L 01/08/19526 Basophils (%) (Auto) 0.6 % 01/08/19526 Lactate 4.3 mmol/L *H 01/08/19526 Calcium Level 9.5 mg/dl 01/08/19526 Total Bilirubin 0.9 mg/dl 01/08/19 05 Aspartate Amino Transf (AST/SGOT) 30 U/L 01/08/19 05 Alanine Aminotransferase (ALT/SGPT) 36 U/L 01/08/19 05 Alkaline Phosphatase 80 U/L 01/08/19 05 Urine Urobilinogen 4.0 mg/dL H 01/08/19 0825 Urine Leukocyte Esterase Moderate H 01/08/19 0825 Urine RBC 4 /HPF 01/08/19 0825 Urine WBC 8 /HPF 01/08/19 0825 Urine Squamous Epithelial Cells Many /LPF H 01/08/19 0825 Urine Blood Small 01/08/19 08 Prothromb Time International Ratio 1.02 01/08/19 05 Lipase 435 U/L H 01/08/19 05 EKG / Imaging Imaging Abd/Pelvis CT - 1. Circumferential thickening and inflammation of the colon from the splenic flexure to the rectum suggestive of colitis. No evidence for bowel obstruction. Assessment and Plan Problems: (1) Colitis, infectious Status: Acute Assessment & Plan: She presented with nausea, abdominal pain, shaking chills, and bloody stools the night before admission. She was tachycardic, had a low normal BP, elevated Cr/WBC/lactate, and had a CT consistent with descending colitis. She had become fairly constipated for about 4-5 days prior last night. She had very large BM's that were then followed by bloody stools. She has been volume resuscitated with improvement of BP/P. Zosyn has been started at renal dosing. Repeat Lactate is pending. Continue Protonix for now. She will only be on clears for 24 hours. Blood cultures pending. (2) ARF (acute renal failure) Status: Acute Assessment & Plan: Secondary to dehydration and exacerbated by NSAID use and Lisinopril/HCTZ. Holding all NSAIDs and BP meds until BP stable and creatinine normalized. (3) Status post knee replacement Status: Acute Assessment & Plan: Done on 12/31. Doing well. Continue CPM. Will ask PT to see her. Will resume ASA for DVT prophylaxis if the bloody BM stop. SCD for VTE prophylaxis for now. Holding etodolac po. (4) HTN (hypertension) Status: Chronic Assessment & Plan: Chronically on Lisinopril/HCTZ, which will be held. (5) Hypothyroid Status: Chronic Assessment & Plan: Continue chronic levothyroxine. Copies to: [facility] LOCKE; JHONY HERNADEZ MD ; Venous Thromboembolism Antithrombotics Is Pt On Any Antithrombotics?: No Exam Sepsis Risk: No Definite Risk Problem Qualifiers (1) Status post knee replacement: Laterality: left Qualified Codes: Z96.652 - Presence of left artificial knee joint ALBERTO KENNEDY MD Jan 08, 2019 09:33
[2019-01-08] MEDS ORDERED: [UNRECOGNIZED DRUG - CODE] PO (09:36)
[2019-01-08] MEDS ORDERED: ESTR42.5 VA (11:00)
[2019-01-08] MEDS ORDERED: OMEG-11 PO (11:00)
[2019-01-08] MEDS ORDERED: PIPERACILLIN/TAZO SOD* 2.25 GM 2.25 GM in NS(*) 0.9% 100 ML MINI-BAG 100 ML IVPB SCH (14:00)
[2019-01-08 14:27] VITALS: BP 127/61
[2019-01-08] MEDS: PIPERACILLIN/TAZO*3.375GM VIAL 3.375 GM in NS(*) 0.9% 100 ML MINI-BAG 100 ML IVPB SCH ×2 (14:29→20:54)
[2019-01-08] MEDS: ACETAMINOPHEN 325 MG TAB PO PRN ×2 (15:06→21:44)
--- NOTE | 2019-01-08 16:29 | NUR ---
This Physical Therapist or Hvac Service Manager was present for the entire physical therapy session directing the services, making the skilled judgement, and was not engaged in treating another patient or doing another task at the same time as the treatment session. Addendum: 01/08/19 at 1629 by IGOR PARKER PT Amended: Links added.
--- NOTE | 2019-01-08 16:34 | NUR ---
Physical Therapy Impression PT eval complete. Pt expressed no concerns regarding mobility. Pt had earlier requested CPM machine. Pt stated she was currently taking a break from it, but that she had no questions or concerns regarding it. Pt was encouraged to ambulate with nursing staff. Pt with no skilled PT needs. Pt safe to discharge home from a mobility standpoint, when medically appropriate. Physical Therapy Goals Patient's Goals
[2019-01-08 19:50] VITALS: BP 121/52
[2019-01-09] MEDS: PIPERACILLIN/TAZO*3.375GM VIAL 3.375 GM in NS(*) 0.9% 100 ML MINI-BAG 100 ML IVPB SCH (02:37)
[2019-01-09] MEDS: ACETAMINOPHEN 325 MG TAB PO PRN (02:39)
[2019-01-09] MEDS ORDERED: LEVOTHYROXINE SOD 0.075 MG TAB PO SCH (06:00)
[2019-01-09] MEDS: LR(*) 1000 ML BAG 1,000 ML IV PRN (06:29)
[2019-01-09 07:01] LABS: PLATELET COUNT, AUTOMATED 291 K/uL (150-450)
[2019-01-09 07:08] VITALS: BP 134/60
[2019-01-09] MEDS ORDERED: HYDROCHLOROTHIAZIDE 25 MG TAB PO SCH (09:00)
[2019-01-09] MEDS ORDERED: LISINOPRIL 20 MG TAB PO SCH (09:00)
[2019-01-09] MEDS ORDERED: PANTOPRAZOLE SOD 40 MG IV VIAL IVP SCH (09:00)
[2019-01-09] MEDS ORDERED: LORATADINE 10 MG TAB PO SCH (09:00)
[2019-01-09] MEDS ORDERED: AZITHROMYCIN 250 MG TAB PO SCH (09:00)
[2019-01-09] MEDS ORDERED: ASPIRIN 325 MG TAB PO SCH (09:00)
[2019-01-09] MEDS ORDERED: PANTOPRAZOLE SOD 40 MG TABEC PO SCH (09:00)
--- NOTE | 2019-01-09 09:13 | Medical Nutrition Therapy ---
Nutrition Anthropometrics Height (Inches): 68.00 Height (Calculated Centimeters: 172.676323 Weight (Pounds): 180 Weight (Calculated Kilograms): 81.647 BMI: 27.4 Samy Nutrition Score: Adequate Samy Nutrition Risk Score: 19 Dietary Referral Nutrition Risk Factors: Nutrition Risk Comment: Physical Findings Physical Appearance: Overweight BMI 25-29 Skin Appearance Skin Appearance: Edema Edema Location Modifier: Edema Location: Type of Edema: Degree of Edema: Gastrointestinal Symptoms GI Symtoms: Diarrhea, Change in Bowel Pattern Tube Present: Bowel Sounds: Recent Bowel Pattern: Constipated, Diarrhea Stool Characteristics: Mucoid, Loose, Bright Red Blood Nutritional Diagnosis Nutritional Risk Acuity 1: Acute/ES Renal Nutritional Risk Acuity 3: Nausea Past Medical History: hypotyroid, knee replacement surgery Nutritional Acuity: 1-High Nutrition Diagnosis: Decreased Nutrient Needs Nutrition Etiology: Physiological Causes Nutrition Problem/Etiology/Sym: Decreased Na, phos, K+ needs r/t dx ARF AEB admitting BUN 30, creatinine 1.6 Energy Requirement: 2024 (25 kcal/kg) Protein Requirement: 65 (.8gm/kg) Fluid Requirement: 2024 (1ml/kcal) Nutrition Monitoring & Eval Nutrition Goals: Eat 75-100% Meal RD Patient Assessment Time: [address] Assessment Type: RD Assessment Patient Nutrition Acuity: 1-High Follow Up Date: Jan 12, 2019 Nutritional Comment: 01/09 Pt admitted for colitis with ARF s/p knee surgery. Admitting BUN 30, creatinine 1.6. Curretnly BUN WNR at 14 and creatinine WNR at 1. Pt on clear liquid diet and ate 75%. Pt cont to have N/V. Will cont to monitor and encourage intake. DELLA CATALAN Jan 09, 2019 09:13
--- NOTE | 2019-01-09 11:00 | Antimicrobial Stewardship ---
Antimicrobial Time Out Antimicrobial Stewardship MD Service: Hospitalist Indications: Other (COLITIS) Antimicrobial Used ZOSYN, CHANGED TO AZITH PO FOR DISCHARGE Start Date: Jan 07, 2019 Culture Results: No (NO GROWTH) Eligible for PO Conversion Eligable for PO Conversion: Yes Reviewed with Provider Reviewed w/ Provider on Rounds: No Comments Comments TRANSITIONED TO ORAL AZITHROMYCIN FOR INFECTIOUS DIARRHEA X 3 DOSES FOR DISCHARGE, LAST DOSE 01/10/19 (SENT HOME WITH PATIENT) CHAGO COOK Jan 09, 2019 11:00
[2019-01-09] MEDS ORDERED: AZIT-18 PO (11:35)
--- NOTE | 2019-01-09 11:42 | Hospitalist Depart ---
Discharge Summary Reason for Hosp/Final Diag: (1) Colitis, infectious Status: Acute Hospital Course & Plan: She presented with nausea, abdominal pain, shaking chills, and bloody stools the night before admission. She was tachycardic, had a low normal BP, elevated Cr/WBC/lactate, and had a CT consistent with descending colitis. BP and lactate improved with IV fluids, leukocytosis resolved on antibiotics. Changed to PO azithromycin to complete 3 days therapy. (2) ARF (acute renal failure) Status: Acute Hospital Course & Plan: Secondary to dehydration and exacerbated by NSAID use and Lisinopril/HCTZ. Resume Lisinopril/HCTZ, recommend continue to hold NSAID, use acetaminophen PRN. (3) Status post knee replacement Status: Acute Hospital Course & Plan: Done on 12/31. Doing well. Resume 325mg ASA (4) HTN (hypertension) Status: Chronic Hospital Course & Plan: Chronically on Lisinopril/HCTZ. (5) Hypothyroid Status: Chronic Hospital Course & Plan: Continue chronic levothyroxine. Departure Weight (Pounds): 180 Result Diagram: 01/09/19 1102 01/09/19 0638 Condition: Improved Discharge: Home Discharge Instructions Home Meds Active Scripts Azithromycin 250 Mg Tab (AZITHROMYCIN 250 MG TAB) 250 Mg Tablet, 500 MG PO QDAY for 1 Day, #2 TAB Prov:DESIREE SINGH DO 01/09/19 Aspirin (ASPIRIN) 325 Mg Tablet, 325 MG PO QDAY, #30 TAB Prov:[facility] 01/02/19 Reported Medications [place]-3 Fatty Acids/Fish Oil (FISH OIL 1,000 MG CAPSULE) 1 Each Capsule, 1 CAP PO QDAY, CAPSULE 01/08/19 Estrogens, Conjugated (Premarin) 0.625 Mg/Gram Cream.appl, 0.5 G VA 2XW 01/08/19 Oxycodone/Acetaminophen (OXYCODONE/ACETAMINOPHEN 5MG/325 MG) 5 Mg/325 Mg Tab, 1 TAB PO Q4H PRN for PAIN, #40 01/02/19 Multivitamin (DAILY VITAMIN) 1 Each Tablet, 1 EACH PO DAILY 08/24/14 Loratadine (CLARITIN) 10 Mg Tablet, 10 MG PO QDAY 08/24/14 Lisinopril/Hydrochlorothiazide (Lisinopril-Hctz 20/25 Tab) 1 Each Tablet, 1 EACH PO DAILY Hold for 3 days or until systolic blood pressure greater than 130. 11/08/12 Levothyroxine Sodium (Levothyroxine Sodium) 75 Mcg Tablet, 75 MCG PO DAILY 11/08/12 Discontinued Reported Medications Etodolac (ETODOLAC) 500 Mg Tab.er.24h, 500 MG PO QDAY 01/08/19 Aspirin (Aspirin) 81 Mg Tablet.dr, 81 MG PO DAILY Hold while taking Aspirin 325mg, then resume. 11/08/12 Ergocalciferol (Vitamin D2) (VITAMIN D) 400 Unit Tablet, 200 UNIT PO QDAY 10/01/14 Diet: Regular (soft bland, advance as tolerated) Activity: As Tolerated Special Instructions: Recommend soft bland diet, advance slowly as tolerated. You were started on antibiotics for colitis, take as directed until complete. Copies to: [facility] ; Venous Thromboembolism Antithrombotics Is Pt On Any Antithrombotics?: No Problem Qualifiers (1) Status post knee replacement: Laterality: left Qualified Codes: Z96.652 - Presence of left artificial knee joint DESIREE SINGH DO Jan 09, 2019 11:40
[2019-01-09 11:46] VITALS: BP 151/65
[2019-01-10] MEDS ORDERED: AZITHROMYCIN 250 MG TAB PO SCH
[2019-01-10] MEDS ORDERED: AZITHROMYCIN 250 MG TAB PO ONE (09:00)
== END 2019-01-09 13:35 | disposition home or self-care (01) | DRG 392 ==
LOC: ER 04:52 → MED 08:05
PROVIDERS: ADMIT Internal Medicine; ATTEND Internal Medicine
DX: A09 Infectious gastroenteritis and colitis, unspecified (principal); N17.9 Acute kidney failure, unspecified; K92.1 Melena; I10 Essential (primary) hypertension; Z96.652 Presence of left artificial knee joint; E03.9 Hypothyroidism, unspecified; Z88.2 Allergy status to sulfonamides; Z88.8 Allergy status to other drugs, medicaments and biological substances; Z91.013 Allergy to seafood
CPT/HCPCS: 36415; 74176; 81001; 82040; 82247; 82310; 82374; 82435; 82565; 82947; 83605; 83690; 84075; 84132; 84155; 84295; 84450; 84460; 84520; 85014; 85018; 85025; 85610; 85730; 87040; 96361; 96365; 96375; 97161; 99284; C9113; J2405; J2543; J3010; J7030; J7120; Q9967

== ENCOUNTER → 2019-02-04 | Outpatient (CLI) | payer MEDICARE, OTHER ==
[2019-01-01 12:02] VITALS: BMI 28.0
[~2019-02-04] MED LIST changes: +AZIT-18 PO; +ESTR42.5 VA; +OMEG-11 PO; +[UNRECOGNIZED DRUG - CODE] PO
[2019-02-04 11:20] LABS: PLATELET COUNT, AUTOMATED 302 K/uL (150-450)
== END ==
LOC: LAB 10:41
PROVIDERS: ATTEND Nurse Practitioner Psychiatric/Mental Health
DX: K52.9 Noninfective gastroenteritis and colitis, unspecified (principal)
CPT/HCPCS: 36415; 83540; 85025